=== PATIENT | female | born 1985 ===

== ENCOUNTER 2023-01-05 08:26 | Emergency (ER) | payer OTHER, SELFPAY ==
[2023-01-05 08:36] VITALS: BP 124/78; PULSE 77; RESP 18; TEMP 36.7; O2SAT 100
--- NOTE | 2023-01-05 08:47 | ED.NAVMDI ---
HPI - Nausea/Vomiting/Diarrhea General Chief complaint: Nausea/Vomiting/Diarrhea Stated complaint: Vomiting,Dizziness,Diarrhea,Nausea Time Seen by Provider: 01/05/23 08:40 Source: patient and RN notes reviewed Mode of arrival: ambulatory Limitations: no limitations History of Present Illness HPI Narrative: 37 y/o female presented for c/o n/v/d since yesterday morning. Endorses she has been unable to keep anything down including water since yesterday and reports intermittent dizziness. Patient states she is dehydrated. Denies sick contacts or anyone in the house with similar symptoms, denies travel. Denies eating anything out of the ordinary but reports decreased appetite for a while due to the summer heat. Denies significant abdominal pain, states she has some cramping worse when vomiting. Denies cough, sob, wheezing, body aches, fever. Related Data Home Medications Medication Instructions Recorded Confirmed levonorgestrel 21 mcg/24 hours (8 See Rx Instructions .Route .COMPLEX 01/05/23 01/05/23 yrs) 52 mg intrauterine device (Mirena) Allergies Allergy/AdvReac Type Severity Reaction Status Date / Time No Known Allergies Allergy Verified 01/05/23 08:33 Review of Systems Review of Systems: CONSTITUTIONAL: Denies body aches, fever, chills ENT: Denies rhinorrhea, congestion CARDIOVASCULAR: Denies chest pain, palpitations, or edema. RESPIRATORY: Denies cough or dyspnea. GASTROINTESTINAL: Endorses nausea, vomiting, diarrhea. Denies abdominal pain, hematochezia, melena, hematemesis GENITOURINARY: Denies dysuria, hematuria, or CVA tenderness. SKIN: Denies rash, itching, or wounds. MUSCULOSKELETAL: Denies back pain, joint pain, or myalgia. NEUROLOGIC: Denies headache, numbness, tingling, or weakness. All systems reviewed & are unremarkable except as noted in HPI and below PMFSH Past Medical History Medical History (Updated 01/05/23 @ 09:18 by Nessa Silver APRN) No pertinent past medical history Surgical History Surgical History (Updated 01/05/23 @ 08:55 by Nessa Silver APRN) H/O gastric bypass Social History Social History (Updated 01/05/23 @ 08:57 by Nessa Silver APRN) Additional smoking assessment comments: occasional hookah Comments At time of signature, I have reviewed and agree with nursing past medical, surgical, social and family history unless otherwise noted. Please see nursing chart for further information. There is no relevant family history pertinent to the presenting complaint Exam Narrative: GENERAL: mildly ill-appearing, and in no acute distress. EYES: EOMI. Conjunctivae normal. ENT: Mucous membranes pink and moist. CHEST: No respiratory distress. Clear to auscultation. HEART: Regular rate and rhythm. No murmur appreciated. Normal peripheral pulses. ABDOMEN: abd soft, nondistended, hyperactive bowel sounds. mild tender abdomen, generalized; No guarding, rebound tenderness, asymmetry EXTREMITIES: Normal range of motion. No edema. SKIN: Warm, dry, no rash. Capillary refill normal. Normal skin turgor. NEURO: No focal deficits. Alert and oriented x3. PSYCH: Normal affect. Course Course Emergency Course: Patient is aware of diagnosis, understands and agrees to treatment plan. Anticipatory guidance given. Patient agrees to follow-up as directed and is aware of reasons to seek care at the emergency department. Portions of this record may have been created with voice recognition software Level of Care: Express Care Visit Vital Signs Vital signs: Vital Signs Temperature 98.0 F 01/05/23 08:36 Pulse Rate 77 01/05/23 08:36 Respiratory Rate 18 01/05/23 08:36 Blood Pressure 124/78 01/05/23 08:36 Pulse Oximetry 100 01/05/23 08:36 Oxygen Delivery Room Air 01/05/23 08:36 Temperature 98.0 F 01/05/23 08:36 Pulse Rate 77 01/05/23 08:36 Respiratory Rate 18 01/05/23 08:36 Blood Pressure 124/78 01/05/23 08:36 Pulse Oxi
[2023-01-05] MEDS: ONDANSETRON HCL ODT 4 MG TABLET SUBLINGUAL (08:54)
== END 2023-01-05 09:24 | disposition home or self-care (01) ==
PROVIDERS: Emergency Provider Nurse Practitioner Family; PCP Family Medicine
DX: R11.2 Nausea with vomiting, unspecified (principal); R19.7 Diarrhea, unspecified; Z98.84 Bariatric surgery status
CPT/HCPCS: 99213; A9270; G0463